=== PATIENT | female | born 1955 | race Caucasian/White ===

== ENCOUNTER 2016-12-17 11:43 | Inpatient (IN) | payer OTHER ==
[2016-12-12 13:42] LABS: HEMATOCRIT 43.7 % (36.0-48.0); HEMOGLOBIN 14.9 g/dL (12.0-16.0)
--- NOTE | ~2016-12-17 | OP ---
Record Of Operation [facility] [address] [place]. [address] NAME: EUGENE COVINGTON : 51 STATUS : DIS IN PAT#: [id number] AGE: 61 ADM/REG DATE : 12/17/16 MR#: [id number] REPORT SERV DATE: 12/21/16 DICTATED BY: JONATHAN JAMES II DATE: 12/21/16 REPORT STATUS : Draft TRANSCRIBED BY: MODL DATE: 12/21/16 DATE OF PROCEDURE: 12/17/2016 PREOPERATIVE DIAGNOSES: 1. Cervical spondylotic myelopathy. 2. Multilevel cord and nerve root compression. 3. 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 POSTOPERATIVE DIAGNOSES: 1. Cervical spondylotic myelopathy. 2. Multilevel cord and nerve root compression. 3. 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 PROCEDURE: 1. C3-C4, C4-C5, C5-C6, C6-C7 anterior interbody arthrodesis. 2. Application of prosthetic devices, C3-C4, C4-C5, C5-C6, and C6-C7. 3. Anterior instrumentation, C3-C7 (five segments). 4. Use of bone marrow aspirate and allograft substitute. SURGEON: Jonathan James M.D. FLUIDS: 1300 mL of LR. ESTIMATED BLOOD LOSS: 50 mL. DRAINS: One. COMPLICATIONS: None. ANTIBIOTICS: Preoperatively. IMPLANTS: Globus. PREOPERATIVE HISTORY: This is a very friendly 61-year-old female, suffering with not only upper extremity numbness and tingling, but also complaining of difficulty with proprioception in the upper extremities as well as some balance issues walking. She also does report pains consistent with discogenic neck pain. We discussed the pros and cons of continuing nonoperative care versus surgery. Overall, she and I discussed the risk of significant difficulty swallowing as well as the chance of vocal cord paralysis. We also discussed the fact that she could develop a nonunion and may require a posterior decompression and/or arthrodesis. DESCRIPTION OF PROCEDURE: After informed consent was obtained, the patient was brought to the operating room at her request and general anesthesia was achieved. She was placed in a supine position, and the neck and iliac crest were prepped and draped in a sterile fashion. 5 mL of bone marrow was aspirated from the iliac crest, followed by a longitudinal incision. Record Of Operation [facility] [address] [place]. [address] NAME: EUGENE COVINGTON : 51 STATUS : DIS IN PAT#: [id number] AGE: 61 ADM/REG DATE : 12/17/16 MR#: [id number] REPORT SERV DATE: 12/21/16 DICTATED BY: JONATHAN JAMES II DATE: 12/21/16 REPORT STATUS : Draft TRANSCRIBED BY: RUTH DATE: 12/21/16 The interval was explored, and the dissection was performed from C3 to C7. The longus colli muscles were dissected, and the black powder glazing operator retractors were placed underneath the longus colli muscles. Three [place] pins were placed. At this point, we noted that she did have quite soft bone. At this point, the diskectomy was now completed at C3-C4. The endplates were prepared with the pituitary rongeurs, Kerrison rongeurs, and the curettes. The predominance of her cord compression was at C3-C4 and C4-C5. The posterior ligament was now removed at C3-C4. The anterior canal and foramen were well decompressed with the Kerrison rongeurs. The prosthetic device was trialed and chosen and placed at C3-C4. This contained an allograft substitute and bone marrow aspirate. Next, the C4-C5 level was addressed in a similar manner with diskectomy and endplate preparation. The posterior ligament was once again removed, and the cord and nerve roots were well decompressed. The prosthetic device was then placed at C4-C5. Excellent fit was obtained. Next, the same technique was used at C5-C6 for diskectomy and endplate preparation. The posterolateral osteophytes were removed, and the prosthetic device was placed at C5-C6. Next, we then performed the same procedure at C6-C7, whereupon the disk was removed, endplates were prepared, and the diskectomy was completed. The prosthetic device was then well placed at C6-C7. Next, the anterior instrumentation was applied. Please note, this was a separate plate and screw construct and two screws were placed in C3, C4, C5, C6, and C7. Multiplanar imaging confirmed acceptable placement of the implants. A deep drain was placed, followed by standard closure. The patient was extubated and transferred to PACU in stable condition. FRANKLIN/RUTH Jonathan James II, M.D. / [id number] CC: Grey Mensah II, III, M.D.
[~2016-12-17 11:43] MED LIST: MULTIPLE VIT PO; NEUR300 PO; NORCO1 TA1 PO; ZANAFLEX 4 MG TA4 MG PO
[2016-12-19] MEDS ORDERED: V2 PO (09:58)
[2016-12-19] MEDS ORDERED: PERCOCET 10/3251 TAB PO (09:58)
== END 2016-12-19 14:28 | disposition home or self-care (01) | DRG 473 ==
LOC: SDC 11:43 → 3SO 11:44
PROVIDERS: Orthopaedic Surgery
PROC: 07DR3ZZ Extraction of Iliac Bone Marrow, Percutaneous Approach (ICD-10-PCS; 2016-12-17)
PROC: 4A11X4G Monitoring of Peripheral Nervous Electrical Activity, Intraoperative, External Approach (ICD-10-PCS; 2016-12-17)
PROC: 0RG20A0 Fusion of 2 or more Cervical Vertebral Joints with Interbody Fusion Device, Anterior Approach, Anterior Column, Open Approach (ICD-10-PCS; principal; 2016-12-17 07:00)
DX: M50.01 Cervical disc disorder with myelopathy, high cervical region (principal)
CPT/HCPCS: 82962; 85014; 85018; 87641; 88304; 88311; 93005; A9270-GY; C1713; J1580; J2250; J2270; J2405; J2710; J3010; J3370